=== PATIENT | male | born 1970 | race Caucasian/White ===

== ENCOUNTER 2016-06-14 15:58 | Emergency (ER) | payer OTHER ==
[2016-06-14 16:19] VITALS: TEMP 98.9
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
[2016-06-14 17:27] VITALS: BP 148/88; O2SAT 97
== END 2016-06-14 17:29 | disposition home or self-care (01) ==
LOC: ER 15:58
DX: S70.02XA Contusion of left hip, initial encounter (principal); S80.12XA Contusion of left lower leg, initial encounter; Z86.14 Personal history of Methicillin resistant Staphylococcus aureus infection; W17.89XA Other fall from one level to another, initial encounter

== ENCOUNTER → 2016-07-03 | Outpatient (CLI) | payer OTHER | END | disposition home or self-care (01) | LOC: GMA 15:38 | PROVIDERS: ATTEND Nurse Practitioner Family | DX: L03.90 Cellulitis, unspecified (principal) ==